=== PATIENT | male | born 1950 | race Caucasian/White ===

== ENCOUNTER → 2017-06-05 | Day surgery (SDC) | payer OTHER ==
[~2017-06-05] VITALS: Ht 170.2 cm; Wt 85.3 kg
[~2017-06-05] MED LIST: ASPIRIN EC325 MG PO; BUSPIRONE HCL7.5 MG PO; MOBIC15 MG PO; OCUVITE TABLET1 EAC1 PO; TRAZODONE HCL50 MG PO
--- NOTE | ~2017-06-05 | O ---
[facility] [place] [address] OPERATIVE REPORT Name: JEANNE BANKS Room #: REG [facility]#: [id number] Admission: 06/05/17 Attend Phys: Joe Finn MD Discharge: Date of : 50 Report #: [id number] THIS REPORT FOR: //name// CC: Chinmay Finn DATE OF SERVICE: 06/05/2017 SURGEON: Joe Finn MD ACUTE CARE CERTIFIED NURSING ASSISTANT: None. PREOPERATIVE DIAGNOSIS: Bilateral upper lid dermatochalasia with superior visual field defect. POSTOPERATIVE DIAGNOSIS: Bilateral upper lid dermatochalasia with superior visual field defect. OPERATION PERFORMED: Bilateral upper lid functional blepharoplasty. ANESTHESIA: Local with IV sedation. COMPLICATIONS: None. INDICATIONS FOR SURGERY: This patient has acquired upper lid dermatochalasia with superior visual field loss OU because of excessive upper lid tissues to include skin and fat. Visual field testing was done and demonstrated loss of superior field in excess of 30%. The superior visual field loss improved with retesting done during eyelid elevation. The current procedures are undertaken in order to improve the patient's visual function. Informed consent was obtained to include but not limited to the loss of vision, bleeding, infection, scarring, failure to improve the problem and need for further surgery. DESCRIPTION OF OPERATION: The patient was taken to the operating room, where 2% Xylocaine with epinephrine mixed with equal parts of 0.75% Marcaine with Wydase was administered transcutaneously to each upper lid. The patient was then prepped and draped in the usual sterile fashion and a skin-marking pen was then utilized to outline an upper lid crease that was symmetrical on each side. Graefe forceps were then used to quantitate the redundant upper lid skin and it was similarly outlined. The incisions were then made with Valdez scissors and a skin-muscle flap removed from each side with high-temp cautery. Hemostasis was achieved with the monopolar cautery as it was throughout the case. The orbital septum was then identified and the central and medial fat pads were [address] [address] OPERATIVE REPORT Name: JEANNE BANKS Room #: REG [facility].#: [id number] Admission: 06/05/17 Attend Phys: Joe Finn MD Discharge: Date of : 50 Report #: [id number] inspected. The redundant soft tissue was then sculpted with the monopolar cautery. The upper lid crease was then reformed with tightening of the pretarsal orbicularis muscle. The upper lid crease was then further reformed with multiple interrupted 6-0 chromic sutures. The skin was then closed with a running 6-0 plain gut suture. The wound was then cleaned and dressed with ophthalmic antibiotic ointment and a nonstick dressing. The patient was transported to the recovery area, where cold compresses were applied, having tolerated the procedure well with no anesthetic or operative complications being noted. <ELECTRONICALLY SIGNED> By: Joe Finn MD 06/12/17 06 1439 1600 Joe Finn MD /navya
[2017-06-05 13:15] VITALS: BP 126/67
== END | disposition home or self-care (01) ==
LOC: OR 09:55
DX: H02.834 Dermatochalasis of left upper eyelid (principal); H02.831 Dermatochalasis of right upper eyelid; H53.462 Homonymous bilateral field defects, left side; H53.461 Homonymous bilateral field defects, right side; F17.210 Nicotine dependence, cigarettes, uncomplicated; J45.909 Unspecified asthma, uncomplicated; R00.1 Bradycardia, unspecified; Z90.49 Acquired absence of other specified parts of digestive tract; Z98.890 Other specified postprocedural states
CPT/HCPCS: 50010; 50101; 50386; 50398; 51606; 51636; 56531; 70005